=== PATIENT | male | born 1990 | race Caucasian/White ===

== ENCOUNTER 2017-02-14 15:02 | Day surgery (SDC) | payer OTHER ==
[2017-02-14] MEDS ORDERED: LACTATED RINGERS 1,000 ML IV ONE ×2 (15:18→17:45)
[2017-02-14] MEDS ORDERED: ceFAZolin 2 GM/50 ML 50 ML IV ONE (15:21)
[2017-02-14] MEDS ORDERED: MIDAZOLAM 2 MG/2 ML VIAL IVP ONE (15:55)
[2017-02-14] MEDS ORDERED: PROPOFOL 200 MG/20 ML VIAL IVP ONE (15:55)
[2017-02-14] MEDS ORDERED: KETOROLAC 30 MG/ML VIAL IVP ONE (15:55)
[2017-02-14] MEDS ORDERED: LIDOCAINE-MPF 2% 5 ML VIAL IM ONE (15:55)
[2017-02-14] MEDS ORDERED: ONDANSETRON 4 MG/2 ML VIAL IVP ONE (15:55)
[2017-02-14] MEDS ORDERED: METOCLOPRAMIDE 10 MG/2 ML VIAL IVP ONE (15:55)
[2017-02-14] MEDS: HYDROmorphone 1 MG/ML SYRINGE ONE ×4 (17:10→17:37)
[2017-02-14] MEDS ORDERED: HYDROcod/ACETAM 5/325 MG TABLET ONE (17:42)
== END 2017-02-14 15:03 | disposition home or self-care (01) ==
PROC: 0S9N0ZZ Drainage of Left Metatarsal-Phalangeal Joint, Open Approach (ICD-10-PCS; principal; 2017-02-14 16:00)
DX: M00.9 Pyogenic arthritis, unspecified (principal)
CPT/HCPCS: 28022; 87070; 87075; 87205; A9270; J0690; J1170; J7120